=== PATIENT | male | born 1940 | race Caucasian/White ===

== ENCOUNTER 2018-10-06 16:55 | Emergency (ER) | payer MEDICARE ==
[2018-10-06 17:02] VITALS: BP 146/83; PULSE 76; RESP 18; TEMP 97.6
[2018-10-06] MEDS ORDERED: LIDOCAINE 1% INJ 10MG/ML (20 ML MDV) SQ ONE (17:07)
[2018-10-06] MEDS ORDERED: DIPH,PERTUS(ACELL)TETVAC-LF 0.5 ML VIAL IM ONE (17:11)
--- NOTE | 2018-10-06 17:32 | ED ---
Wound/Laceration HPI - General Chief Complaint: Wound/Laceration Stated Complaint: Right Leg Laceration Time Seen by Provider: 10/06/18 17:05 Source: patient, RN notes reviewed Mode of arrival: wheelchair Limitations: no limitations - History of Present Illness Initial Comments: 78-year-old male presents emergency Department chief complaint right leg la ceration. Patient states that it have urinary today when he was using a small saw. Patient states he went to set the saw down and caught his leg. Patient denies any other injuries has full range of motion no paresthesias. PatientIs unsure when his last tetanus was. - Related Data Previous Rx's Medication Instructions Recorded Cephalexin [Keflex] 500 mg PO Q6HR #40 cap 10/06/18 Allergies Allergy/AdvReac Type Severity Reaction Status Date / Time bacitracin Allergy Unknown Verified 10/06/18 17:03 [From Neosporin ([id number])] lisinopril Allergy Unknown Verified 10/06/18 17:03 neomycin Allergy Unknown Verified 10/06/18 17:03 [From Neosporin ([id number])] polymyxin B Allergy Unknown Verified 10/06/18 17:03 [From Neosporin ([id number])] Review of Systems ROS Statement: Those systems with pertinent positive or pertinent negative responses have been documented in the HPI. ROS Other: All systems not noted in ROS Statement are negative. Past Medical History Past Medical History: Hypertension Additional Past Medical History / Comment(s): MS History of Any Multi-Drug Resistant Organisms: None Reported Past Surgical History: Back Surgery, Cholecystectomy, Joint Replacement Additional Past Surgical History / Comment(s): cataract surgery Past Psychological History: No Psychological Hx Reported Smoking Status: Former smoker Past Alcohol Use History: Occasional Past Drug Use History: None Reported General Exam Limitations: no limitations General appearance: alert, in no apparent distress Head exam: Present: atraumatic, normocephalic, normal inspection Respiratory exam: Present: normal lung sounds bilaterally. Absent: respiratory distress, wheezes, rales, rhonchi, stridor Cardiovascular Exam: Present: regular rate, normal rhythm, normal heart sounds. Absent: systolic murmur, diastolic murmur, rubs, gallop, clicks Extremities exam: Present: other (Right lower thigh region there is a 4 cm laceration with irregular edges, full range of motion full-strength no active b leeding) Skin exam: Present: warm, dry Course Vital Signs 10/06/18 16:59 Temperature 97.6 F Pulse Rate 76 Respiratory 18 Rate Blood Pressure 146/83 O2 Sat by Pulse 98 Oximetry Procedures - Laceration Laceration #1 Consent Obtained: verbal consent Indication: laceration Site: lower extremity (Right leg) Size (cm): 4 Description: irregular, foreign body Depth: simple, single layer Anesthetic Used: lidocaine 1%, without epi Anesthesia Technique: local infiltration Amount (mls): 10 Pre-repair: wound explored, irrigated extensively, deep structures intact Type of Sutures: nylon Size of Sutures: 3-0 Number of Sutures: 8 Technique: simple, interrupted Patient Tolerated Procedure: well, no complications Medical Decision Making - Medical Decision Making 78-year-old male presented for right leg laceration this was closed using sutures patient tolerated well patient leg was thoroughly cleaned patient will be discharged with antibiotics, wound care instructions given, return parameters were given. Disposition Clinical Impression: Laceration of right lower extremity Disposition: HOME SELF-CARE Condition: Stable Instructions (If sedation given, give patient instructions): Care For Your Stitches (ED), Laceration (ED) Additional Instructions: Have sutures removed in 14 days.Please return to the Emergency Department if symptoms worsen or any other concerns. Prescriptions: Cephalexin [Keflex] 500 mg PO Q6HR #40 cap Is patient prescribed a controlled substance at d/c from ED?: No Referrals: Vincent Kline DO [Primary Care Provider] - 1-2 days Time of Disposition: 17:35
== END 2018-10-06 18:02 | disposition home or self-care (01) ==
LOC: EC 16:55
DX: S81.811A Laceration without foreign body, right lower leg, initial encounter (principal); G35 Multiple sclerosis; Z87.891 Personal history of nicotine dependence; Z88.1 Allergy status to other antibiotic agents; Z88.8 Allergy status to other drugs, medicaments and biological substances; Z23 Encounter for immunization; W27.8XXA Contact with other nonpowered hand tool, initial encounter; Y93.89 Activity, other specified; Y92.009 Unspecified place in unspecified non-institutional (private) residence as the place of occurrence of the external cause
CPT/HCPCS: 90715; 99282; 12002; 90471; J2001

== ENCOUNTER 2018-10-06 20:40 | Emergency (ER) | payer MEDICARE ==
[2018-10-06 20:50] VITALS: BP 119/65; PULSE 82; RESP 18; TEMP 98.7
--- NOTE | 2018-10-06 20:54 | ED ---
Wound/Laceration HPI - General Chief Complaint: Wound/Laceration Stated Complaint: Leg bleeding Time Seen by Provider: 10/06/18 20:53 Source: patient, RN notes reviewed Mode of arrival: wheelchair Limitations: no limitations - History of Present Illness Initial Comments: 78-year-old male presented for recheck of his right leg wound. Patient had sutures placed earlier today. Patient states he noticed some bleeding from the site which has subsided. Patient states he read his discharge instructions which advise and return for any signs of bleeding. Patient has no increase in pain. Patient offers no complaints. - Related Data Previous Rx's Medication Instructions Recorded Cephalexin [Keflex] 500 mg PO Q6HR #40 cap 10/06/18 Allergies Allergy/AdvReac Type Severity Reaction Status Date / Time bacitracin Allergy Unknown Verified 10/06/18 20:50 [From Neosporin ([id number])] lisinopril Allergy Unknown Verified 10/06/18 20:50 neomycin Allergy Unknown Verified 10/06/18 20:50 [From Neosporin ([id number])] polymyxin B Allergy Unknown Verified 10/06/18 20:50 [From Neosporin ([id number])] Review of Systems ROS Statement: Those systems with pertinent positive or pertinent negative responses have been documented in the HPI. ROS Other: All systems not noted in ROS Statement are negative. Past Medical History Past Medical History: Hypertension Additional Past Medical History / Comment(s): MS, History of Any Multi-Drug Resistant Organisms: None Reported Past Surgical History: Back Surgery, Cholecystectomy, Joint Replacement Additional Past Surgical History / Comment(s): cataract surgery Past Psychological History: No Psychological Hx Reported Smoking Status: Former smoker Past Alcohol Use History: Occasional Past Drug Use History: None Reported General Exam Limitations: no limitations General appearance: alert, in no apparent distress Respiratory exam: Present: normal lung sounds bilaterally. Absent: respiratory distress, wheezes, rales, rhonchi, stridor Cardiovascular Exam: Present: regular rate, normal rhythm, normal heart sounds. Absent: systolic murmur, diastolic murmur, rubs, gallop, clicks Extremities exam: Present: other (Right leg wound sutures in place no active bleeding there is some blood on the gauze, pulses are equal bilaterally no blood is expressed) Course Vital Signs 10/06/18 20:48 Temperature 98.7 F Pulse Rate 82 Respiratory 18 Rate Blood Pressure 119/65 O2 Sat by Pulse 95 Oximetry Medical Decision Making - Medical Decision Making 78-year-old male presented for recheck. Patient has some bleeding from his suture site. Patient has no evidence of hematoma or any active bleeding patient be discharged. Disposition Clinical Impression: Bleeding from wound Disposition: HOME SELF-CARE Condition: Stable Instructions (If sedation given, give patient instructions): Care For Your Stitches (DC) Additional Instructions: Please return to the Emergency Department if symptoms worsen or any other concerns. Is patient prescribed a controlled substance at d/c from ED?: No Referrals: Vincent Kline DO [Primary Care Provider] - 1-2 days Time of Disposition: 20:54
== END 2018-10-06 21:06 | disposition home or self-care (01) ==
LOC: EC 20:40
DX: L76.22 Postprocedural hemorrhage of skin and subcutaneous tissue following other procedure (principal); Z87.891 Personal history of nicotine dependence; Z88.1 Allergy status to other antibiotic agents; Z88.8 Allergy status to other drugs, medicaments and biological substances; Y83.8 Other surgical procedures as the cause of abnormal reaction of the patient, or of later complication, without mention of misadventure at the time of the procedure
CPT/HCPCS: 99282